=== PATIENT | female | born 1965 | race Caucasian/White ===

== ENCOUNTER → 2019-08-24 08:30 | Outpatient (CLI) | payer MEDICARE, MEDICAID, SELFPAY ==
--- NOTE | 2019-08-21 01:45 | HP_ITS ---
HPI HPI History of Present Illness Surgical H&P: Yes Details: Mrs. Garcia is a very pleasant 54-year-old obese female with a history of diabetes type 2, hyperlipidemia, mild JUAN by sleep study on 04/09/2019 at the [facility], hypertension, history of CVA status post right carotid endarterectomy on 04/01/[address] [facility], carotid artery stenosis, heavy tobacco user of approximately half pack per day for the past 40 years, who presents for evaluation of abnormal stress test in anticipation of elective left carotid endarterectomy. Patient underwent a stress test on 07/02/2019 in [facility] at which she went 4.6 METS, unable to attain target heart rate, and terminated test due to chest pain and shortness of breath she was emergently stopped at 2 minutes and 40 seconds due to 7 out of 10 chest pain. Apparently no imaging was performed. On further history, the patient denies any exertional chest pain, angina, but does have dyspnea on exertion and shortness of breath. She recently underwent PFTs with results pending at an outside facility. She has never had a heart catheterization. In our office today her blood pressure is 120/60, and pulse is 60 and regular. Physical exam demonstrates bilateral carotid bruits, left greater than right, regular rate and rhythm, normal S1/S2, no S3, S4 or murmurs are noted. She has no edema. EKG dated 08/21/2019 shows sinus bradycardia, normal axis, normal intervals, QT corrected of 421 ms, no evidence of previous myocardial infarction. Lipids are pending. Intake Vital Signs 08/21/19 Height 5 ft 6 in 08/21/19 Weight: 204 lb 08/21/19 BMI 32.9 08/21/19 BP 120/60 08/21/19 Blood Pressure Location Lt brachial 08/21/19 Position Sitting 08/21/19 Respiration 20 H 08/21/19 Pulse 60 08/21/19 Pulse Source Auscultation Intake Visit Reasons: ABN STRESS (Danica RAO NP) Body Fitter Required: No Is patient in pain?: No Allergies No Known Allergies Allergy (Verified 08/21/19 13:20) Medications albuterol sulfate 90 mcg/actuation breath activated powder inhaler 2 inh INHALATION Q4H PRN 08/20/19 [History Confirmed 08/21/19] aspirin 81 mg tablet,delayed release 81 mg PO DAILY 08/20/19 [History Confirmed 08/21/19] atorvastatin 80 mg tablet 80 mg PO QHS 08/20/19 [History Confirmed 08/21/19] cyclobenzaprine 5 mg tablet 5 mg PO TID PRN 08/20/19 [History Confirmed 08/21/19] fluoxetine 20 mg capsule 20 mg PO DAILY 08/20/19 [History Confirmed 08/21/19] glimepiride 4 mg tablet 4 mg PO DAILY 08/20/19 [History Confirmed 08/21/19] hydrocortisone 1 % topical cream 1 applic TOPICAL BID PRN g 08/20/19 [History Confirmed 08/21/19] hydroxyzine HCl 10 mg tablet 10 mg PO BID PRN tab 08/20/19 [History Confirmed 08/21/19] losartan 25 mg tablet 25 mg PO DAILY 08/20/19 [History Confirmed 08/21/19] metformin 500 mg tablet 1,000 mg PO DAILY tab 08/20/19 [History Confirmed 08/21/19] PFSH Medical History (Updated 08/20/19 @ 17:56 by Rebeca Aldana) Hypersomnia (Chronic) Hyperlipidemia (Chronic) Heavy tobacco smoker (Chronic) Fatigue (Acute) Shortness of breath (Acute) Diabetes mellitus type II, controlled (Chronic) Chronic bronchitis (Chronic) Essential hypertension (Chronic) Abnormal stress test (Acute) History of CVA (cerebrovascular accident) (Chronic) Carotid artery stenosis (Chronic) Carotid artery disease (Chronic) Bipolar disorder (Chronic) Surgical History (Updated 08/20/19 @ 17:56 by Rebeca Aldana) History of right-sided carotid endarterectomy (Chronic 04/01/14) Family History (Updated 08/20/19 @ 17:57 by Rebeca Aldana) Mother Diabetes Leukemia Social History (Updated 08/21/19 @ 13:[address] Johnathan Santoro MD) Smoking Status: Heavy Smoker (>10/day) ROS Const Const: Positive for other (Needs pre-op eval for L carotid endart per Dr. Santana Portillo. Abn. stress.); negative for fatigue, weakness, body ache, fever(s), headache(s), chills, frequent falls, night sweats, daytime sleepiness, difficulty sleeping, excessive sweating, weight gain, weight loss, increased appetite, poor appetite or anorexia Eyes Eyes: Negative for blind spots, loss of peripheral vision, transient loss of vision, blurry vision, change in vision, double vision, floaters, tunnel vision or other ENT ENT: Negative for headache(s), dizziness, hearing loss, tinnitus, Nosebleed/epistaxis, balance problems, post nasal drip, lip swelling, tongue swelling, bleeding gums, hoarseness, neck pain, dry mouth or other Cardio Chest Pain: No Palpitations: No Edema: None Muscle aches with walking: None Resp Respiratory: Positive for SOB with activity (Has COPD, heavy smoker); negative for SOB at rest, SOB orthopnea\SOB lying down, Cough, Coughing up blood/hemoptysis, chest congestion, pain on inspiration, snoring, stridor, wheezing, crackles, paroxysmal nocturnal dyspnea or other GI GI: Negative nausea, vomiting, heartburn, constipation, belching, bloating, cramping, vomiting blood/hematemesis, bright, red blood in stools, black,tarry stools, loose stools, Difficulty Swallowing or other : Negative for hematuria, frequent nighttime urination/ nocturia, erectile dysfunction or abnormal vaginal bleeding Musc Musc: Negative for muscle aches/ myalgia, muscle weakness, joint pain or balance problems Skin Skin: Negative redness, non-healing lesions, rash, unusual bruising, skin ulcer, wounds, jaundice or other Neuro Neuro: Negative for dizziness, lightheadedness, near syncope, syncope, orthostatic symptoms, frequent falls, headache(s), weakness, confusion, memory loss, restless legs, blurry vision, double vision, vertigo, seizures, lack of coordination or other Osiel Hematologic/Lymphatic: Negative for easy bleeding, easy bruising, enlarged lymph nodes or other Endo Endo: Negative for fatigue, cold intolerance, heat intolerance, excessive sweating, flushing, increased thirst/drinking, increased hunger, hair loss, hair growth or other Psych Psych: Negative for anxiety, depression, thoughts of harming anyone, thoughts of harming yourself, visual hallucinations, panic attacks or audible hallucinations Allergy Allergy/Immunology: Negative for throat swelling, Negative for tongue swelling, Negative for hives, Negative for rash, Negative for lip swelling Cardiology Exam Const Appearance: cooperative, healthy appearing and no acute distress Nutritional Appearance: well nourished Orientation: alert, oriented x3 and oriented to person Head Head: normal to inspection, normocephalic and atraumatic Nose: external nose normal Face and Sinus: face symmetric Mouth: oral mucosae normal Eyes General: appearance normal, both eyes and all related structures Eyelids: eyelids normal Conjunctivae: conjunctivae normal Pupils: PERRL and normal by confrontation EOM: EOM intact bilaterally Neck Neck: normal visual inspection and full ROM Carotids: normal carotid upstroke Chest Chest inspection: normal inspection of the chest Auscultation: Bilateral: Clear to Auscultation Cardio Palpation: normal PMI Rate: regular rate Rhythm: regular rhythm Heart sounds: S1 normal and S2 normal GI GI: normal to inspection, no hepatosplenomegaly and bowel sounds present Neuro General: alert, awake, oriented x3, CN's II-XI intact bilaterally and moves all extremities Skin Skin: no rashes or lesions noted Extremities Pulses: Normal: Right Femoral Pulse, Left Femoral Pulse, Right Dorsalis Pedis Pulse, Left Dorsalis Pedis Pulse, Right Posterior Tibial Pulse, Left Posterior Tibial Pulse, Right Radial Pulse, Left Radial Pulse Lower Extremity Edema: None: Bilateral Psych Psychological: normal affect Assessment & Plan 1. Abnormal stress test R94.39 Plan 1. Abnormal stress test: The patient had a markedly abnormal stress test without imaging on 07/02/2019 at which time she only went 4.6 METS, had 6 out of 10 chest pressure, and had profound shortness of breath/dyspnea on exertion which may be an anginal equivalent. As her left carotid endarterectomy is elective at this time, and she has no strokelike symptoms, I recommended that she undergo a diagnostic left heart catheterization to confirm/deny the presence of significant coronary occlusive disease. The risk/benefits of the procedure were thoroughly explained to the patient, including specific attention to lack of onsite surgical backup, and informed consent was obtained. In the meantime she will continue baby aspirin, losartan, and we will add Plavix 75 mg p.o. daily after a 300 mg x 1 dose. Given her peripheral vascular disease, I would recommend dual antiplatelet therapy going forward. Orders Orders: 12 Lead EKG performed by BMS Today Left Heart Cath/COR/LV Percut Today Basic Metabolic Profile (BMP) Today Chest PA and Lateral Today ,Serum,hCG Quali. Today 2. Hyperlipidemia E78.5 Plan 2. Hyperlipidemia: I recommend obtaining a baseline fasting lipid profile given her risk factors. She is currently on high-dose Lipitor. Her LDL should be less than 70. Orders Orders: 12 Lead EKG performed by [facility] Today Chest PA and Lateral Today 3. Heavy tobacco smoker F17.200 Plan 3. Tobacco abuse are: I had a long thorough discussion with the patient regarding tobacco cessation, and strongly encourage her to discontinue all tobacco products. 4. Return office in 6 months. This note was generated using a voice recognition system and there may be incorrect words, spelling or punctuation that were not noted when reviewing the office note prior to saving. Orders Orders: Chest PA and Lateral Today Plan Detail Other Orders Orders: 12 Lead EKG performed by BMS Today I10, Z86.73 Prothrombin Time w/INR Today R06.02 Echo Complete Today R06.02 CBC W/Diff, Automated Today G47.10 Chest PA and Lateral Today Z86.73 Lipid Profile Today E78.00 Liver Profile Today E78.00 Follow Up +6M (Yvan) Coding Level of Care Code Off vis,new,level 4 Diagnoses Abnormal stress test R94.39 Hyperlipidemia E78.5 Heavy tobacco smoker F17.200 Coding Level of Care Code Off vis,new,level 4 Diagnoses Abnormal stress test R94.39 Hyperlipidemia E78.5 Heavy tobacco smoker F17.200 08/21/19 1345 <Electronically signed by Johnathan Santoro MD> Date _ Johnathan Santoro MD
[2019-08-21 13:19] VITALS: BMI 32.9
--- NOTE | 2019-08-21 15:10 | RAD_ITS ---
STUDY: X-RAY CHEST REASON FOR EXAM: Female, 54 years old. patient to have a heart cath, abnormal stress test, shortness of breath TECHNIQUE: PA and lateral views of the chest. COMPARISON: None. FINDINGS: The lungs are clear and expanded. There is no demonstrated pleural abnormality. Normal size heart. Normal mediastinum and rolo. Normal visualized pulmonary arteries. Normal visualized aortic arch and descending thoracic aorta. Normal visualized thoracic spine. Normal visualized ribs, clavicles, and shoulders. There is no demonstrated abnormality of the visualized soft tissue structures of the upper abdomen. RAD/Chest PA and Lateral IMPRESSION: No acute cardiopulmonary disease. Electronically Signed: Mónica Uribe MD at 0:50 EDT , Service support ,
[2019-08-21 16:10] LABS: Absolute Lymphocyte Count 2.66 X10^3/uL (0.83-4.51); Absolute Neutrophil Count 6.1 X10^3/uL (2.0-7.7); Basophil# 0.07 X10^3/uL; Basophil% 0.7 % (0-1); Eosinophil# 0.09 X10^3/uL; Hematocrit 37.7 % (37-47); Hemoglobin 12.2 g/dL (12.0-15.0); Lymphocyte # 2.66 X10^3/ul (4.0); Lymphocyte % 28.4 % (19-41); Mean Corp Hgb Conc 32.4 g/dL (32-36); Mean Corpuscular Hgb 28.3 pg (27.0-32.0); Mean Corpuscular Volume 87.5 fL (81-99); Mean Platelet Vol. 11.1 fl (6.2-12.0); Monocyte# 0.47 X10^3/uL; NRBC Flagged by Analyzer 0 % (0-5); Neutrophil # 6.06 X10^3/uL (2.7-7.7); Neutrophil % 64.6 % (47-70); Platelet Count 211 K/mm3 (150-450); RBC Distribution Width CV 13.4 % (11.6-14.6); RBC Distribution Width SD 43.1 fl (35.1-43.9); Red Blood Count 4.31 M/mm3 (4.2-5.4); White Blood Count 9.4 K/mm3 (4.4-11.0)
[2019-08-21 16:28] LABS: Internal QC Validated? YES +Cl - CLEAR BKGD; Pregnancy, Serum, hCG Quali. NEGATIVE Negative
[2019-08-21 17:10] LABS: Prothrombin Time (Protime)PT. 13.4 SECONDS (11.7-14.9)
[2019-08-21 18:57] LABS: AST(SGOT) 27 U/L (15-37); Alanine Aminotransfer ALT/SGPT 38 U/L (13-56); Albumin, Serum 3.9 g/dL (3.2-5.0); Alkaline Phosphatase 82 U/L (45-117); Anion Gap 9 (5-15); BUN 15 mg/dL (7-18); BUN/Creat Ratio 12.3 RATIO (10-20); Bilirubin, Direct 0.11 mg/dL (0.00-0.30); Calcium,Total 9.2 mg/dL (8.5-10.1); Chloride 106 mmol/L (98-107); Cholesterol 99 mg/dL (200); Creatinine, Serum 1.22 mg/dL (0.55-1.02); EST Glomerular Filtration Rate 48 mL/min (>60); Est Glom Filt Rate - Afr Amer 59 mL/min (>60); Globulin 3.8 g/dL (2.2-4.2); Glucose 129 mg/dL (74-106); High Density Lipoprotein 44 mg/dL; Potassium 3.9 mmol/L (3.5-5.1); Protein, Total 7.7 g/dL (6.4-8.2); Sodium Level 140 mmol/L (136-145); Triglycerides 112 mg/dL; Very Low Density Lipoprotein 22 mg/dL (5-40)
== END ==
PROVIDERS: PCP Nurse Practitioner Adult Health; Referring Provider Internal Medicine Cardiovascular Disease; Visit Provider Internal Medicine Cardiovascular Disease
DX: Z01.818 Encounter for other preprocedural examination (principal); R94.39 Abnormal result of other cardiovascular function study; R06.02 Shortness of breath; E78.00 Pure hypercholesterolemia, unspecified
CPT/HCPCS: 36415; 71046; 80048; 80061; 80076; 84703; 85025; 85610; 85730

== ENCOUNTER → 2019-10-08 12:37 | Outpatient (CLI) | payer MEDICARE, MEDICAID, SELFPAY ==
[2019-08-21 13:19] VITALS: BMI 32.9
--- NOTE | 2019-10-08 12:39 | ECHOCS_ITS ---
Reason For Study: Pre-op clearance Procedure This was a 2D Doppler, Color Flow transthoracic echocardiogram. The study was technically difficult. Exam performed in department. Left Ventricle Normal size and thickness. The estimated ejection fraction is 65 %. Stage 1 diastolic dysfunction. No regional wall motion abnormalities noted. Right Ventricle Normal size and thickness. Normal systolic function. Atria Normal left atrium. Normal right atrium. Normal atrial septum. Mitral Valve The mitral valve is structurally normal. No prolapse or stenosis seen. Trivial mitral valve insufficiency. Tricuspid Valve Normal tricuspid valve. Trivial tricuspid valve insufficiency. Right ventricular systolic pressure estimated to be 28 mmHg. Aortic Valve Trisinus/trileaflet aortic valve. Normal aortic valve. Pulmonic Valve Normal pulmonic valve. Great Vessels Normal aortic root. Normal arch. Normal inferior vena cava. Inferior vena cava collapse with sniff. Pericardium/Pleural No pericardial effusion. Medication 22 gauge I.V. with prn adaptor inserted into right arm. Diluted definity 2ml given slow IV push to enhance endocardial definition. MMode/2D Measurements & Calculations LVIDd: 4.4 cm IVSd: 1.1 cm Ao root diam: 3.3 cm LVIDs: 2.6 cm LVPWd: 0.94 cm RVDd: 3.1 cm FS: 41.1 % LAV(MOD-bp): 52.5 ml LA A4 area: 18.7 cm2 LA dimension(2D): 4.0 cm LAV(MOD-bp) Indexed: 26.2 ml/m2 LAV(MOD-sp2): 47.3 ml LAV(MOD-sp4): 53.0 ml RA A4 area: 13.4 cm2 Doppler Measurements & Calculations MV E max adilson: 81.0 cm/sec Lat Peak E' Adlison: 9.0 cm/sec Med Peak E' Adilson: 6.9 cm/sec MV A max adilson: 82.6 cm/sec E/E' lat: 9.0 E/E' med: 11.8 MV E/A: 0.98 Ao V2 max: 131.2 cm/sec LV V1 max: 112.0 cm/sec PA V2 max: 103.6 cm/sec Ao max P.9 mmHg LV V1 max P.0 mmHg TR max adilson: 241.4 cm/sec TR max P.3 mmHg Interpretation Summary The estimated ejection fraction is 65 %. Stage 1 diastolic dysfunction. Trivial mitral valve insufficiency. Trivial tricuspid valve insufficiency. Right ventricular systolic pressure estimated to be 28 mmHg. The study was technically difficult. Contrast injection was performed. There is no comparison study available. Ordering Physician: Johnathan Santoro Referring Physician: Elizabeth Martinez Performed By: Yoly Laboy RDCS
[2019-10-08 13:05] LABS: Hematocrit 42.5 % (37-47); Hemoglobin 13.9 g/dL (12.0-15.0); Mean Corp Hgb Conc 32.7 g/dL (32-36); Mean Corpuscular Hgb 28.4 pg (27.0-32.0); Mean Corpuscular Volume 86.9 fL (81-99); Mean Platelet Vol. 10.9 fl (6.2-12.0); Platelet Count 266 K/mm3 (150-450); RBC Distribution Width CV 12.9 % (11.6-14.6); RBC Distribution Width SD 40.6 fl (35.1-43.9); Red Blood Count 4.89 M/mm3 (4.2-5.4); White Blood Count 9.8 K/mm3 (4.4-11.0)
[2019-10-08 13:17] LABS: Anion Gap 4 (5-15); BUN 17 mg/dL (7-18); BUN/Creat Ratio 14.8 RATIO (10-20); Calcium,Total 9.4 mg/dL (8.5-10.1); Chloride 105 mmol/L (98-107); Creatinine, Serum 1.15 mg/dL (0.55-1.02); EST Glomerular Filtration Rate 52 mL/min (>60); Est Glom Filt Rate - Afr Amer 63 mL/min (>60); Glucose 241 mg/dL (74-106); Potassium 3.9 mmol/L (3.5-5.1); Sodium Level 137 mmol/L (136-145)
[2019-10-08 13:30] LABS: Prothrombin Time (Protime)PT. 12.4 SECONDS (11.7-14.9)
[2019-10-08 13:31] LABS: Partial Thromboplast Time 25.7 Seconds (24.1-36.2)
--- NOTE | 2019-10-08 13:51 | EKG12_ITS ---
Test Reason : PRE CATH Blood Pressure : / mmHG Vent. Rate : 055 BPM Atrial Rate : 055 BPM P-R Int : 162 ms QRS Dur : 092 ms QT Int : 432 ms P-R-T Axes : 061 062 061 degrees QTc Int : 413 ms Sinus bradycardia Otherwise normal ECG Confirmed by ERNESTO SANTORO ([id number]), photography editor BOYD AMARAL ([id number]) on 10/11/2019 3:25:16 PM Referred By: Ernesto Santoro Confirmed By:ERNESTO SANTORO
== END ==
PROVIDERS: PCP Nurse Practitioner Adult Health; Referring Provider Internal Medicine Cardiovascular Disease; Visit Provider Internal Medicine Cardiovascular Disease
DX: Z01.818 Encounter for other preprocedural examination (principal); R06.02 Shortness of breath; R07.9 Chest pain, unspecified; R94.39 Abnormal result of other cardiovascular function study; I65.29 Occlusion and stenosis of unspecified carotid artery
CPT/HCPCS: 36415; 80048; 85027; 85610; 85730; 93005; 93306; Q9957; A4216; C8929

== ENCOUNTER 2019-10-12 06:40 | Day surgery (SDC) | payer MEDICARE, MEDICAID, SELFPAY ==
[2019-08-21 13:19] VITALS: BMI 32.9
--- NOTE | 2019-10-08 02:35 | HP_ITS ---
HPI HPI History of Present Illness Surgical H&P: Yes Details: Details: Mrs. Garcia is a very pleasant 54-year-old obese female with a history of diabetes type 2, hyperlipidemia, mild JUAN by sleep study on 04/09/[address] [facility], hypertension, history of CVA status post right carotid endarterectomy on 04/01/2014 at [facility], carotid artery stenosis, heavy tobacco user of approximately half pack per day for the past 40 years, who presents for evaluation of abnormal stress test in anticipation of elective left carotid endarterectomy. Patient underwent a stress test on 07/02/2019 in [facility] at which she went 4.6 METS, unable to attain target heart rate, and terminated test due to chest pain and shortness of breath she was emergently stopped at 2 minutes and 40 seconds due to 7 out of 10 chest pain. Apparently no imaging was performed. On further history, the patient denies any exertional chest pain, angina, but does have dyspnea on exertion and shortness of breath as her presenting symptom. She recently underwent PFTs with results pending at an outside facility. She has never had a heart catheterization. We had originally set the patient up for a left heart catheterization but due to scheduling issues and the coronavirus it is been postponed up until this upcoming week. She is now here for an updated H&P. She has had no difficulty with aspirin and Plavix. She is tolerating her medicines well. In our office today her blood pressure is 138/68, and pulse is 70 and regular. Physical exam demonstrates bilateral carotid bruits, left greater than right, regular rate and rhythm, normal S1/S2, no S3, S4 or murmurs are noted. She has no edema. EKG dated 08/21/2019 shows sinus bradycardia, normal axis, normal intervals, QT corrected of 421 ms, no evidence of previous myocardial infarction. Lipids dated 08/21/2019 show an LDL of 33 and HDL of 44. EKG from today is pending. Intake Vital Signs 10/08/19 Height 5 ft 6 in 10/08/19 Weight: 207 lb 5 oz 10/08/19 BMI 33.4 10/08/19 BP 138/68 H 10/08/19 Blood Pressure Location Lt brachial 10/08/19 Position Sitting 10/08/19 Respiration 20 H 10/08/19 Pulse 76 10/08/19 Pulse Source Auscultation Intake Visit Reasons: UPDATE H&P PER [facility] / CATH [facility] Attendant Required: No Accompanied by: Caregiver Is patient in pain?: No Allergies No Known Allergies Allergy (Verified 08/21/19 13:20) Medications albuterol sulfate 90 mcg/actuation breath activated powder inhaler 2 inh INHALATION Q4H PRN 08/20/19 [History Confirmed 10/08/19] atorvastatin 80 mg tablet 80 mg PO QHS 08/20/19 [History Confirmed 10/08/19] fluoxetine 20 mg capsule 20 mg PO DAILY 08/20/19 [History Confirmed 10/08/19] glimepiride 4 mg tablet 4 mg PO DAILY 08/20/19 [History Confirmed 10/08/19] hydroxyzine HCl 10 mg tablet 10 mg PO BID PRN tab 08/20/19 [History Confirmed 10/08/19] losartan 25 mg tablet 25 mg PO DAILY 08/20/19 [History Confirmed 10/08/19] metformin 500 mg tablet 1,000 mg PO DAILY tab 08/20/19 [History Confirmed 10/08/19] aspirin 81 mg tablet,delayed release 81 mg PO DAILY #30 tab 08/21/19 [Rx Confirmed 10/08/19] clopidogrel 75 mg tablet 75 mg PO DAILY #30 tab 08/21/19 [Rx Confirmed 10/08/19] PFSH Medical History Hypersomnia (Chronic) Hyperlipidemia (Chronic) Heavy tobacco smoker (Chronic) Fatigue (Acute) Shortness of breath (Acute) Diabetes mellitus type II, controlled (Chronic) Chronic bronchitis (Chronic) Essential hypertension (Chronic) Abnormal stress test (Acute) History of CVA (cerebrovascular accident) (Chronic) Carotid artery stenosis (Chronic) Carotid artery disease (Chronic) Bipolar disorder (Chronic) Surgical History History of right-sided carotid endarterectomy (Chronic 04/01/14) Family History Mother Diabetes Leukemia Social History (Updated 10/08/19 @ 14:[address] Johnathan Santoro MD) Smoking Status: Heavy Smoker (>10/day) ROS Const Const: Positive for other (Here for H&P for heart cath, abnormal stress test.); negative for fatigue, weakness, body ache, fever(s), headache(s), chills, frequent falls, night sweats, daytime sleepiness, difficulty sleeping, excessive sweating, weight gain, weight loss, increased appetite, poor appetite or anorexia Eyes Eyes: Negative for blind spots, loss of peripheral vision, transient loss of vision, blurry vision, change in vision, double vision, floaters, tunnel vision or other ENT ENT: Negative for headache(s), dizziness, hearing loss, tinnitus, Nosebleed/epistaxis, balance problems, post nasal drip, lip swelling, tongue swelling, bleeding gums, hoarseness, neck pain, dry mouth or other Cardio Chest Pain: Yes Frequency: monthly Location: mid sternal Duration: minutes Resp Respiratory: Positive for SOB with activity (with minimal exertion. She does smoke) and other (Uses inhaler); negative for SOB at rest, SOB orthopnea\SOB lying down, Cough, Coughing up blood/hemoptysis, chest congestion, pain on inspiration, snoring, stridor, wheezing, crackles or paroxysmal nocturnal dyspnea GI GI: Negative nausea, vomiting, heartburn, constipation, belching, bloating, cramping, vomiting blood/hematemesis, bright, red blood in stools, black,tarry stools, loose stools, Difficulty Swallowing or other : Negative for hematuria, frequent nighttime urination/ nocturia, erectile dysfunction or abnormal vaginal bleeding Musc Musc: Negative for muscle aches/ myalgia, muscle weakness, joint pain or balance problems Skin Skin: Negative redness, non-healing lesions, rash, unusual bruising, skin ulcer, wounds, jaundice or other Neuro Neuro: Negative for dizziness, lightheadedness, near syncope, syncope, orthostatic symptoms, frequent falls, headache(s), weakness, confusion, memory loss, restless legs, blurry vision, double vision, vertigo, seizures, lack of coordination or other Osiel Hematologic/Lymphatic: Negative for easy bleeding, easy bruising, enlarged lymph nodes or other Endo Endo: Negative for fatigue, cold intolerance, heat intolerance, excessive sweating, flushing, increased thirst/drinking, increased hunger, hair loss, hair growth or other Psych Psych: Negative for anxiety, depression, thoughts of harming anyone, thoughts of harming yourself, visual hallucinations, panic attacks or audible hallucinations Allergy Allergy/Immunology: Negative for throat swelling, Negative for tongue swelling, Negative for hives, Negative for rash, Negative for lip swelling Cardiology Exam Const Appearance: cooperative, healthy appearing and no acute distress Nutritional Appearance: well nourished Orientation: alert, oriented x3 and oriented to person Head Head: normal to inspection, normocephalic and atraumatic Nose: external nose normal Face and Sinus: face symmetric Mouth: oral mucosae normal Eyes General: appearance normal, both eyes and all related structures Eyelids: eyelids normal Conjunctivae: conjunctivae normal Pupils: PERRL and normal by confrontation EOM: EOM intact bilaterally Neck Neck: normal visual inspection and full ROM Carotids: normal carotid upstroke Chest Chest inspection: normal inspection of the chest Auscultation: Bilateral: Clear to Auscultation Cardio Palpation: normal PMI Rate: regular rate Rhythm: regular rhythm Heart sounds: S1 normal and S2 normal GI GI: normal to inspection, no hepatosplenomegaly and bowel sounds present Neuro General: alert, awake, oriented x3, CN's II-XI intact bilaterally and moves all extremities Skin Skin: no rashes or lesions noted Extremities Pulses: Normal: Right Femoral Pulse, Left Femoral Pulse, Right Dorsalis Pedis Pulse, Left Dorsalis Pedis Pulse, Right Posterior Tibial Pulse, Left Posterior Tibial Pulse, Right Radial Pulse, Left Radial Pulse Lower Extremity Edema: None: Bilateral Psych Psychological: normal affect Assessment & Plan 1. Abnormal stress test R94.39 Plan 1. Abnormal stress test: Patient has signs and symptoms of possible coronary occlusive disease and has several risk factors including her age, diabetes, hyperlipidemia, heavy tobacco use and abnormal stress test. I recommend the patient undergo a left heart catheterization this upcoming week. The risk/benefits of the procedure were thoroughly explained the patient including specific attention to lack of onsite surgical backup, and the patient has agreed to proceed. She will continue her baby aspirin, Plavix, losartan. Orders Orders: Basic Metabolic Profile (BMP) Today CBC-Complete Blood Cnt No Diff Today Prothrombin Time w/INR Today Partial Thromboplast Time Today 12 Lead EKG Today 2. Hyperlipidemia E78.5 Plan 2. Hyperlipidemia: Her LDL and HDL cholesterol are under excellent control. Continue Lipitor. 3. Return office in 6 months. This note was generated using a voice recognition system and there may be incorrect words, spelling or punctuation that were not noted when reviewing the office note prior to saving. Plan Detail Other Orders Orders: Basic Metabolic Profile (BMP) Today I65.29, Z01.818 Prothrombin Time w/INR Today I65.29, Z01.818 Partial Thromboplast Time Today I65.29, Z01.818 12 Lead EKG Today R06.02, R07.9 Follow Up +6M (Yvan) Coding Level of Care Code Off vis,est,level 3 Diagnoses Abnormal stress test R94.39 Hyperlipidemia E78.5 Coding Level of Care Code Off vis,est,level 3 Diagnoses Abnormal stress test R94.39 Hyperlipidemia E78.5 Supplemental Info Supplemental Information Labs LDL Cholesterol 33 mg/dL (0-130) 08/21/19 HDL Cholesterol 44 mg/dL (40-) 08/21/19 Triglycerides 112 mg/dL (-199) 08/21/19 VLDL Cholesterol 22 mg/dL (5-40) 08/21/19 Diagnostics Electrocardiogram 08/21/19 Chest X-Ray 08/21/19 10/08/19 3137 <Electronically signed by Johnathan Santoro MD> Date _ Johnathan Santoro MD
[2019-10-08 13:08] VITALS: BMI 33.4
[2019-10-10 08:25] VITALS: BMI 33.4
--- NOTE | 2019-10-12 08:16 | HP.PCM_ITS ---
Problem List (1) Abnormal stress test Status: Acute (2) Fatigue Status: Acute (3) Shortness of breath Status: Acute (4) Carotid artery disease Status: Chronic (5) Hyperlipidemia Status: Chronic History and Physical Date of Admission: 10/12/19 [facility] Medical Records Department [address] [place] [address] History and Physical 10/08/19 0235 MR#: [id number] Acct: [id number] Name: VIRGINIA SIMENTAL Rep #:[id number] : 1965 54 From: Johnathan Warren PCP: MIRIAN Pulliam Status:PRE S DC [facility] HPI HPI History of Present Illness Surgical H&P: Yes Details: Details: Mrs. Simental is a very pleasant 54-year-old obese female with a history of diabetes type 2, hyperlipidemia, mild JUAN by sleep study on 04/09/2019 at the [facility], hypertension, history of CVA status post right carotid endarterectomy on 04/01/2014 at [facility], carotid artery stenosis, heavy tobacco user of approximately half pack per day for the past 40 years, who presents for evaluation of abnormal stress test in anticipation of elective left carotid endarterectomy. Patient underwent a stress test on 07/02/2019 in [facility] at which she went 4.6 METS, unable to attain target heart rate, and terminated test due to chest pain and shortness of breath she was emergently stopped at 2 minutes and 40 seconds due to 7 out of 10 chest pain. Apparently no imaging was performed. On further history, the patient denies any exertional chest pain, angina, but does have dyspnea on exertion and shortness of breath as her presenting symptom. She recently underwent PFTs with results pending at an outside facility. She has never had a heart catheterization. We had originally set the patient up for a left heart catheterization but due to scheduling issues and the coronavirus it is been postponed up until this upcoming week. She is now here for an updated H&P. She has had no difficulty with aspirin and Plavix. She is tolerating her medicines well. In our office today her blood pressure is 138/68, and pulse is 70 and regular. Physical exam demonstrates bilateral carotid bruits, left greater than right, regular rate and rhythm, normal S1/S2, no S3, S4 or murmurs are noted. She has no edema. EKG dated 08/21/2019 shows sinus bradycardia, normal axis, normal intervals, QT corrected of 421 ms, no evidence of previous myocardial infarction. Lipids dated 08/21/2019 show an LDL of 33 and HDL of 44. EKG from today is pending. 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 Advertising Required: No Accompanied by: Caregiver Is patient in pain?: No Allergies No Known Allergies Allergy (Verified 08/21/19 13:20) Medications albuterol sulfate 90 mcg/actuation breath activated powder inhaler 2 inh INHALATION Q4H PRN 08/20/19 [History Confirmed 10/08/19] atorvastatin 80 mg tablet 80 mg PO QHS 08/20/19 [History Confirmed 10/08/19] fluoxetine 20 mg capsule 20 mg PO DAILY 08/20/19 [History Confirmed 10/08/19] glimepiride 4 mg tablet 4 mg PO DAILY 08/20/19 [History Confirmed 10/08/19] hydroxyzine HCl 10 mg tablet 10 mg PO BID PRN tab 08/20/19 [History Confirmed 10/08/19] losartan 25 mg tablet 25 mg PO DAILY 08/20/19 [History Confirmed 10/08/19] metformin 500 mg tablet 1,000 mg PO DAILY tab 08/20/19 [History Confirmed 10/08/19] aspirin 81 mg tablet,delayed release 81 mg PO DAILY #30 tab 08/21/19 [Rx Confirmed 10/08/19] clopidogrel 75 mg tablet 75 mg PO DAILY #30 tab 08/21/19 [Rx Confirmed 10/08/19] [facility] Medical History Hypersomnia (Chronic) Hyperlipidemia (Chronic) Heavy tobacco smoker (Chronic) Fatigue (Acute) Shortness of breath (Acute) Diabetes mellitus type II, controlled (Chronic) Chronic bronchitis (Chronic) Essential hypertension (Chronic) Abnormal stress test (Acute) History of CVA (cerebrovascular accident) (Chronic) Carotid artery stenosis (Chronic) Carotid artery disease (Chronic) Bipolar disorder (Chronic) Surgical History History of right-sided carotid endarterectomy (Chronic 04/01/14) Family History Mother Diabetes Leukemia Social History (Updated 10/08/19 @ 14:[address] Johnathan Santoro MD) Smoking Status: Heavy Smoker (>10/day) ROS Const Const: Positive for other (Here for H&P for heart cath, abnormal stress test.); negative for fatigue, weakness, body ache, fever(s), headache(s), chills, frequent falls, night sweats, daytime sleepiness, difficulty sleeping, excessive sweating, weight gain, weight loss, increased appetite, poor appetite or anorexia Eyes Eyes: Negative for blind spots, loss of peripheral vision, transient loss of vision, blurry vision, change in vision, double vision, floaters, tunnel vision or other ENT ENT: Negative for headache(s), dizziness, hearing loss, tinnitus, Nosebleed/epistaxis, balance problems, post nasal drip, lip swelling, tongue swelling, bleeding gums, hoarseness, neck pain, dry mouth or other Cardio Chest Pain: Yes Frequency: monthly Location: mid sternal Duration: minutes Resp Respiratory: Positive for SOB with activity (with minimal exertion. She does smoke) and other (Uses inhaler); negative for SOB at rest, SOB orthopnea\SOB lying down, Cough, Coughing up blood/hemoptysis, chest congestion, pain on inspiration, snoring, stridor, wheezing, crackles or paroxysmal nocturnal dyspnea GI GI: Negative nausea, vomiting, heartburn, constipation, belching, bloating, cramping, vomiting blood/hematemesis, bright, red blood in stools, black,tarry stools, loose stools, Difficulty Swallowing or other : Negative for hematuria, frequent nighttime urination/ nocturia, erectile dysfunction or abnormal vaginal bleeding Musc Musc: Negative for muscle aches/ myalgia, muscle weakness, joint pain or balance problems Skin Skin: Negative redness, non-healing lesions, rash, unusual bruising, skin ulcer, wounds, jaundice or other Neuro Neuro: Negative for dizziness, lightheadedness, near syncope, syncope, orthostatic symptoms, frequent falls, headache(s), weakness, confusion, memory loss, restless legs, blurry vision, double vision, vertigo, seizures, lack of coordination or other Osiel Hematologic/Lymphatic: Negative for easy bleeding, easy bruising, enlarged lymph nodes or other Endo Endo: Negative for fatigue, cold intolerance, heat intolerance, excessive sweating, flushing, increased thirst/drinking, increased hunger, hair loss, hair growth or other Psych Psych: Negative for anxiety, depression, thoughts of harming anyone, thoughts of harming yourself, visual hallucinations, panic attacks or audible hallucinations Allergy Allergy/Immunology: Negative for throat swelling, Negative for tongue swelling, Negative for hives, Negative for rash, Negative for lip swelling Cardiology Exam Const Appearance: cooperative, healthy appearing and no acute distress Nutritional Appearance: well nourished Orientation: alert, oriented x3 and oriented to person Head Head: normal to inspection, normocephalic and atraumatic Nose: external nose normal Face and Sinus: face symmetric Mouth: oral mucosae normal Eyes General: appearance normal, both eyes and all related structures Eyelids: eyelids normal Conjunctivae: conjunctivae normal Pupils: PERRL and normal by confrontation EOM: EOM intact bilaterally Neck Neck: normal visual inspection and full ROM Carotids: normal carotid upstroke Chest Chest inspection: normal inspection of the chest Auscultation: Bilateral: Clear to Auscultation Cardio Palpation: normal PMI Rate: regular rate Rhythm: regular rhythm Heart sounds: S1 normal and S2 normal GI GI: normal to inspection, no hepatosplenomegaly and bowel sounds present Neuro General: alert, awake, oriented x3, CN's II-XI intact bilaterally and moves all extremities Skin Skin: no rashes or lesions noted Extremities Pulses: Normal: Right Femoral Pulse, Left Femoral Pulse, Right Dorsalis Pedis Pulse, Left Dorsalis Pedis Pulse, Right Posterior Tibial Pulse, Left Posterior Tibial Pulse, Right Radial Pulse, Left Radial Pulse Lower Extremity Edema: None: Bilateral Psych Psychological: normal affect Assessment & Plan 1. Abnormal stress test R94.39 Plan 1. Abnormal stress test: Patient has signs and symptoms of possible coronary occlusive disease and has several risk factors including her age, diabetes, hyperlipidemia, heavy tobacco use and abnormal stress test. I recommend the patient undergo a left heart catheterization this upcoming week. The risk/benefits of the procedure were thoroughly explained the patient including specific attention to lack of onsite surgical backup, and the patient has agreed to proceed. She will continue her baby aspirin, Plavix, losartan. Orders Orders: Basic Metabolic Profile (BMP) Today CBC-Complete Blood Cnt No Diff Today Prothrombin Time w/INR Today Partial Thromboplast Time Today 12 Lead EKG Today 2. Hyperlipidemia E78.5 Plan 2. Hyperlipidemia: Her LDL and HDL cholesterol are under excellent control. Continue Lipitor. 3. Return office in 6 months. This note was generated using a voice recognition system and there may be incorrect words, spelling or punctuation that were not noted when reviewing the office note prior to saving. Plan Detail Other Orders Orders: Basic Metabolic Profile (BMP) Today I65.29, Z01.818 Prothrombin Time w/INR Today I65.29, Z01.818 Partial Thromboplast Time Today I65.29, Z01.818 12 Lead EKG Today R06.02, R07.9 Follow Up +6M (Yvan) Coding Level of Care Code Off vis,est,level 3 Diagnoses Abnormal stress test R94.39 Hyperlipidemia E78.5 Coding Level of Care Code Off vis,est,level 3 Diagnoses Abnormal stress test R94.39 Hyperlipidemia E78.5 Supplemental Info Supplemental Information Labs LDL Cholesterol 33 mg/dL (0-130) 08/21/19 HDL Cholesterol 44 mg/dL (40-) 08/21/19 Triglycerides 112 mg/dL (-199) 08/21/19 VLDL Cholesterol 22 mg/dL (5-40) 08/21/19 Diagnostics Electrocardiogram 08/21/19 Chest X-Ray 08/21/19 10/08/19 1435 <Electronically signed by Johnathan Santoro MD> Date _ Johnathan Santoro MD 10/10/19 0921 <Electronically signed by Johnathan Santoro MD> Date: Time: __ Johnathan Santoro MD CC: MIRIAN Martinez; Johnathan Santoro MD ~ Date Dictated: 10/08/195 Date Transcribed: 10/09/19 1041 Professor Of Public Administration: NR Signed Interventional cardiology addendum: The patient seen and examined on day of procedure, the risk/benefits of the procedure were thoroughly explained the patient including specific attention to lack of onsite surgical backup, and patient agreed to proceed. Cardiac catheterization to follow.
--- NOTE | 2019-10-12 08:24 | CL.D_ITS ---
Patient Name: VIRGINIA SIMENTAL Study Date: 10/12/2019 Performing: Johnathan Santoro MD Ht: 66.14 inches 168 cm : 1965 Wt: 207.23 lbs 94 kg Age: 54 Gender: female BSA: 2.03 PROCEDURE(S) PERFORMED GQ35-XKL/COR/LV CLINICAL PROFILE AND INDICATIONS Indications: Suspected CAD Heart Failure: None Stress/Imaging Date: 07/02/2019 Angina Classification Anginal Classification w/in 2 Weeks: Anginal Equivalent Dyspnea CAD Presentations: Other: Dyspnea on exertion Comorbidities/Risk Factors: Current/Recent Smoker (< 1year) Hypertension Dyslipidemia Diabetes Mellitus: Diabetes Therapy: Oral Cerebrovascular Disease Peripheral Arterial Disease CONCLUSIONS Non obstructive coronary arteries Normal LV size, wall motion,and systolic function Normal Left Ventricular systolic function LVEF: by LV gram 65 % Elevated Left Ventricular End Diastolic Pressure RECOMMENDATIONS Management as per referring Warrant Server Manual sheath removal. Increase losartan to 50mg daily. PFT in 2 weeks. DESCRIPTION OF PROCEDURE The patient arrived to the procedure lab. The risks and benefits of the procedure as well as a full d escription of our services here and current unavailability of surgical backup were fully explained to the patient and/or their significant other prior to the catheterization. The Timeout was completed, verifying the correct patient and procedure. The patient's procedural site was prepped and draped in the usual fashion. Local anesthetic was given subcutaneously to right groin region with Lidocaine 2%. Using a modified Seldinger technique, arterial access was obtained via the right femoral artery, a 4 Fr sheath was inserted Left Coronary Artery selective angiography was performed in multiple views us ing a 4 Fr. JL5 catheter. Right Coronary Artery selective angiography was then performed in multiple views using a 4 Fr. 3DRC catheter. Left Ventriculography was performed in BORJA projection using a 4 Fr . Pigtail catheter. LV to AO pullback pressures were then recorded.The arterial sheath was pulled and manual compression applied until hemostasis is achieved. CORONARY ANGIOGRAPHY DOMINANCE: Right Dominant LEFT HEART ASSESSMENT Left Ventricular Ejection Fraction: by LV Gram 65 % Normal LV wall motion Normal Left Ventricular systolic function LVEDP: 15 mmHg LEFT MAIN: Angiographically normal LEFT ANTERIOR DESCENDING ARTERY: MID LAD: Non-obstructive CIRCUMFLEX ARTERY: Non-obstructive RIGHT CORONARY ARTERY: Mild luminal irregularities less than 30% COMPLICATIONS No Complications PROCEDURE MEDICATIONS Versed 1 mg IV Oxygen: 2 L/min via nasal cannula Nitro 400 mcg IC 10/12/2019 08:12:28 SUMMARY OF HEMODYNAMIC DATA Time AIR REST ECG 07:28:20 AO 195/84 (125) SA 08:05:54 LV 171/-31, 14 08:11:50 LV 166/-30, 14 08:11:56 LVp 170/-30, 15 08:12:03 AOp 175/68 (109) 08:12:08 AO 160/64 (96) 08:12:47 Signed By Johnathan Santoro MD On 10/12/2019 08:23:04 Johnathan Santoro MD
== END 2019-10-12 12:40 | disposition home or self-care (01) ==
LOC: CLSP 06:42
PROVIDERS: PCP Nurse Practitioner Adult Health; Referring Provider Internal Medicine Cardiovascular Disease; Visit Provider Internal Medicine Cardiovascular Disease
DX: R94.39 Abnormal result of other cardiovascular function study (principal); E78.5 Hyperlipidemia, unspecified; I10 Essential (primary) hypertension; I65.29 Occlusion and stenosis of unspecified carotid artery; E11.51 Type 2 diabetes mellitus with diabetic peripheral angiopathy without gangrene; E66.9 Obesity, unspecified; R06.02 Shortness of breath; R53.83 Other fatigue; F17.200 Nicotine dependence, unspecified, uncomplicated; Z68.33 Body mass index [BMI] 33.0-33.9, adult; Z79.82 Long term (current) use of aspirin; Z79.02 Long term (current) use of antithrombotics/antiplatelets; Z79.84 Long term (current) use of oral hypoglycemic drugs; Z86.73 Personal history of transient ischemic attack (TIA), and cerebral infarction without residual deficits
CPT/HCPCS: 93458; 99152; J7040; C1769; C1894; Q9967

== ENCOUNTER → 2020-01-23 09:50 | Outpatient (CLI) | payer MEDICARE, MEDICAID, SELFPAY ==
[2019-10-10 08:25] VITALS: BMI 33.4
--- NOTE | 2020-01-23 09:55 | NM_ITS ---
CLINICAL: 54-year-old female with history of hydronephrosis. 99m Tc MAG3 DIURETIC RENAL SCINTIGRAPHY COMPARISON: None available FINDINGS: Following the intravenous administration of 10.2 mCi of 99m Tc MAG3, renal images reveal: 1. The flow study demonstrates relatively symmetric-normal arterial phase distribution of the radiopharmaceutical. 2. Immediate static delayed nephrogram images depict prompt, homogeneous tracer uptake by the renal parenchyma of both kidneys. Collecting system visualization is defined at 4 minutes following tracer injection bilaterally. Washout of the radiopharmaceutical by the renal parenchyma appears qualitatively normal in both kidneys with significant collecting system activity obscuring visualization of the peripheral renal cortex in the right renal unit. Persistent collecting system activity is noted in the right and left kidneys during 25 minutes of pre-Lasix sequential image acquisition (R > L). 3. The ubyyl-an-aawi ratio of total renal parenchymal function was calculated to be 54/46. Furosemide 10 mg was administered intravenously. The post Lasix T ? washout of the left kidney collecting system activity was calculated to be 14.5 minutes and > 20 minutes regarding the right kidney collecting system, (normal < 10 minutes). Analysis of the post FUROSEMIDE right kidney collecting system time/activity curve demonstrates plateaued count statistics. NM/Renal Scan w/ Pharm Intervent IMPRESSION: 1. There is relative preservation of bilateral renal parenchymal-cortical function. 2. An indeterminate response to diuretic provision is defined in the left kidney collecting system (T ? > 10 and < 20 minutes). An abnormal response to LASIX administration is defined in the right kidney collecting system consistent with the presence of mechanical and/or functional obstruction in the appropriate clinical context. Electronically Signed: Bret Lion DO at 21:30 EDT Tel , Service support ,
== END ==
PROVIDERS: PCP Nurse Practitioner Adult Health; Referring Provider Internal Medicine Nephrology; Visit Provider Internal Medicine Nephrology
DX: N13.30 Unspecified hydronephrosis (principal)
CPT/HCPCS: 78708; A9562; J1940

== ENCOUNTER 2020-12-18 08:50 | Emergency (ER) | payer MEDICARE, MEDICAID, SELFPAY ==
[2019-10-10 08:25] VITALS: BMI 33.4
[2020-12-18 08:51] VITALS: BP 185/91; PULSE 78; RESP 18; TEMP 36.3; O2SAT 96; BMI 32.3
--- NOTE | 2020-12-18 09:28 | CT_ITS ---
STUDY: CT BRAIN WITHOUT CONTRAST REASON FOR EXAM: Female, 55 years old. Weakness RADIATION DOSAGE (If Supplied By Facility): CTDIvol = ( 44.99 ) mGy, DLP = ( 745.49 ) mGycm TECHNIQUE: Transaxial CT imaging of the brain was performed without administration of intravenous contrast material. Individualized dose optimization techniques were used for this CT. COMPARISON: No relevant priors. FINDINGS: Normal soft tissue structures. Normal calvarium. There is mild cerebral atrophy with widening of the extra-axial spaces and ventricular dilatation. Focal area of encephalomalacia in the right temporal lobe. This may represent a focal area of prior infarction. Tiny lacunae is seen in the left basal ganglia. Normal basal ganglia and thalami. Normal brainstem. Normal cerebellum. Prominence of the cisterna magna on the right side. This is a normal variant. There is no intracranial hemorrhage. There are no findings of an acute ischemic infarction. Atherosclerotic plaque formation of the cavernous portions of the internal carotid arteries bilaterally. Normal visualized paranasal sinuses. CT/Brain/Head without Contrast IMPRESSION: Chronic involutional changes of the brain. Findings suggestive of an old focal infarction in the right temporal lobe as well as old lacunar in the left basal ganglia. Electronically Signed: Yaw Greco MD at 10:17 EDT , Service support ,
--- NOTE | 2020-12-18 09:32 | EKG12_ITS ---
Test Reason : FELL Blood Pressure : / mmHG Vent. Rate : 060 BPM Atrial Rate : 060 BPM P-R Int : 158 ms QRS Dur : 088 ms QT Int : 414 ms P-R-T Axes : 050 038 042 degrees QTc Int : 414 ms Normal sinus rhythm Normal ECG Confirmed by VETO LORENZ, JAVIER ([id number]), editor dictionary HARVEY DIAZ ([id number]) on 12/22/2020 9:26:48 AM Referred By: BRANDIN Confirmed By:LORENA LAWS MD
--- NOTE | 2020-12-18 09:34 | EDS_ITS ---
HPI History of Present Illness Chief Complaint: Fall Informant: patient Onset/Context/Timing Onset: Today Context: Sudden Onset Timing: Continuous Quality: Weakness and tingling Location: Left arm and leg Worsened by: Standing Relieved by: Nothing Narrative Narrative: Patient presents with fall that occurred today. Patient states she was in the shower when her left arm and left leg became numb. Patient states her arm and leg then began to shake. Patient states she was able to grab onto a bar with her right hand. Patient fell but denies any head injury or loss of consciousness. Patient denies any pain anywhere. Patient states her left hand and left leg still feel tingly. Patient denies any headaches. Patient denies any neck or back pain. [facility] Medical History Abnormal stress test Carotid artery disease Carotid artery stenosis Chronic bronchitis Diabetes mellitus type II, controlled Essential hypertension Fatigue Heavy tobacco smoker History of CVA (cerebrovascular accident) Hyperlipidemia Hypersomnia PTSD (post-traumatic stress disorder) Shortness of breath Home Medications atorvastatin 80 mg tablet 80 mg PO QHS 08/20/19 [History Last Taken 12/17/20] hydroxyzine HCl 10 mg tablet 10 - 20 mg PO QHS PRN tab 08/20/19 [History Last Taken Unknown] metformin 500 mg tablet 1,000 mg PO DAILY tab 08/20/19 [History Last Taken 12/18/20] losartan 50 mg tablet 50 mg PO DAILY #30 tab 10/12/19 [Rx Last Taken 12/18/20] aspirin 81 mg tablet,delayed release 81 mg PO DAILY #90 tab 01/07/20 [Rx Last Taken 12/18/20] clonidine HCl 0.1 mg PO BID 12/18/20 [History Last Taken Unknown] insulin glargine [Lantus Solostar U-100 Insulin] 40 unit SUBCUT QHS 12/18/20 [History Last Taken Unknown] loratadine 10 mg PO DAILY 12/18/20 [History Last Taken Unknown] Allergy/AdvReac Type Severity Reaction Status Date / Time No Known Allergies Allergy Verified 12/18/20 08:53 Family History Mother Diabetes Leukemia Surgical History History of left heart catheterization (10/12/19) History of right-sided carotid endarterectomy (04/01/14) Social History Smoking Status: Heavy Smoker (>10/day) ROS ROS ED Constitutional Constitutional ED: Denies chills or fever(s) Eyes Eyes: Denies blurry vision or change in vision ENT ENT ED: Denies rhinorrhea or sore throat Cardiovascular Cardiovascular: Denies chest pain or palpitations Respiratory/Chest Respiratory/Chest: Denies cough or dyspnea Gastrointestinal Gastrointestinal: Denies nausea or vomiting Genitourinary Genitourinary ED: Denies dysuria or hematuria Musculoskeletal Musculoskeletal: Denies back pain or neck pain Integumentary Denies abscess or rash Neurologic Neurologic: Reports paresthesias LUE and LLE; Denies headache(s) or weakness Allergic/Immunologic Allergic/Immunologic ED: Denies mouth swelling or urticaria EXAM Physical Exam Const Vital Signs: 12/18/20 08:51 12/18/20 09:23 Temperature 97.3 F L Temperature Source Temporal Pulse Rate 78 Respiratory Rate 18 Respiratory Effort Normal Non-Labored Respiratory Depth Normal Respiratory Pattern Normal Blood Pressure 185/91 H Blood Pressure Mean 122 Pulse Ox 96 Oxygen Delivery Method Room Air Room Air Positive well nourished and well developed General Appearance ED: well developed HEENT Reports moist mucous membranes Neck supple and no JVD Resp normal respiratory effort and clear to auscultation bilaterally Cardio regular rate, regular rhythm and no murmurs GI normal to inspection, nondistended, normoactive bowel sounds and non-tender Palpation: soft Extremity normal to inspection General Extremety ED: Negative for edema or tenderness General Extremity: Negative for edema Neuro oriented x3, CN's II-XII intact bilaterally and no sensory deficits noted Sensorium / Orientation: awake and alert Coordination / Balance: [id number] test normal and other Patient was slower with [id number] on the left than the right. Otherwise, [id number]-vr-[id number] was normal. Motor Exam: strength 5/5 throughout Psych mental status grossly normal Skin no rashes or lesions noted MDM MDM MDM Narrative Medical decision making narrative: EKG was obtained. On my interpretation, it s howed a normal sinus rhythm with a rate of 60. OK interval, QRS interval, and QTc intervals were all normal. [place] was normal. There are no acute ST or T wave changes. CT scan of the brain was obtained. There is no acute intracranial abnormality. CBC and comprehensive metabolic profile were obtained and were within normal limits. Patient was able to ambulate in the emergency department. Patient was instructed to follow-up with her primary care physician in 3 to 5 days. Patient understood and was agreeable with the plan. All questions were answered. Lab Data Attestation: I reviewed the patient's lab results. Labs: Laboratory Results - last 24 hr 12/18/20 12/18/20 09:46 09:46 WBC 8.9 RBC 4.65 Hgb 13.4 Hct 40.9 MCV 88.0 MCH 28.8 MCHC 32.8 RDW Std Deviation 41.8 RDW Coeff of Marcello 13.0 Plt Count 265 MPV 10.4 Immature Gran % (Auto) 0.400 Neut % (Auto) 56.8 Lymph % (Auto) 35.8 Taney % (Auto) 4.9 Eos % (Auto) 1.3 Baso % (Auto) 0.8 Absolute Neuts (auto) 5.1 Absolute Lymphs (auto) 3.19 Nucleated RBC % 0 Sodium 139 Potassium 4.0 Chloride 107 Carbon Dioxide 29.0 Anion Gap 3 L BUN 19 H Creatinine 1.18 H Estim Creat Clear Calc 49.24 Est GFR (MDRD) Af Amer 61 Est GFR (MDRD) Non-Af 50 L BUN/Creatinine Ratio 16.1 Glucose 108 H Calcium 9.2 Total Bilirubin 0.40 AST 21 ALT 31 Alkaline Phosphatase 75 Troponin I High Sens 4.9 Total Protein 7.9 Albumin 3.8 Globulin 4.1 Albumin/Globulin Ratio 0.9 Radiography Diagnostic Testing: Radiology Impression Brain CT 12/18/20 09:28 IMPRESSION: Chronic involutional changes of the brain. Findings suggestive of an old focal infarction in the right temporal lobe as well as old lacunar in the left basal ganglia. Electronically Signed: Yaw Greco MD at 10:17 EDT , Service support , EKG Initial EKG: Attestation: I personally reviewed and interpreted this EKG as follows: Interpretation: Sinus Rhythm (60) and No Acute Injury Pattern Prior EKG tracings: available for review Prior: Unchanged (10/08/2019) Discharge Plan Triage Chief Complaint: Fall ED Provider: Nazario Mead Dx/Rx/DC Orders Clinical Impression: Fall Instructions: ED Fall Prevention, ED Fall Dizziness Weakn Balance Prescriptions: No Action atorvastatin 80 mg tablet 80 mg PO QHS RF: 0 metformin 500 mg tablet 1,000 mg PO DAILY RF: 0 hydroxyzine HCl 10 mg tablet 10 - 20 mg PO QHS PRN (Reason: Anxiety) RF: 0 clonidine HCl 0.1 mg Tablet 0.1 mg PO BID RF: 0 loratadine 10 mg Capsule 10 mg PO DAILY RF: 0 Lantus Solostar U-100 Insulin 100 unit/mL (3 mL) insulin pen 40 unit SUBCUT QHS RF: 0 losartan 50 mg tablet 50 mg PO DAILY Qty: 30 RF: 11 aspirin [Adult Aspirin Regimen] 81 mg tablet,delayed release (DR/EC) 81 mg PO DAILY Qty: 90 RF: 3 Primary Care Provider: Keyona Lopes Referrals: Keyona Lopes [Primary Care Provider] - 3-5 Days Disposition Disposition: Home, Self Care
[2020-12-18 10:07] LABS: Absolute Lymphocyte Count 3.19 X10^3/uL (0.83-4.51); Absolute Neutrophil Count 5.1 X10^3/uL (2.0-7.7); Basophil# 0.07 X10^3/uL; Basophil% 0.8 % (0-1); Eosinophil# 0.12 X10^3/uL; Eosinophils% 1.3 % (0-5); Hematocrit 40.9 % (37-47); Hemoglobin 13.4 g/dL (12.0-15.0); Lymphocyte # 3.19 X10^3/ul (0.83-4.51); Lymphocyte % 35.8 % (19-41); Mean Corp Hgb Conc 32.8 g/dL (32-36); Mean Corpuscular Hgb 28.8 pg (27.0-32.0); Mean Platelet Vol. 10.4 fl (6.2-12.0); Monocyte# 0.44 X10^3/uL; Monocyte% 4.9 % (0-10); NRBC Flagged by Analyzer 0 % (0-5); Neutrophil # 5.05 X10^3/uL (2.7-7.7); Neutrophil % 56.8 % (47-70); Platelet Count 265 K/mm3 (150-450); RBC Distribution Width SD 41.8 fl (35.1-43.9); Red Blood Count 4.65 M/mm3 (4.2-5.4); White Blood Count 8.9 K/mm3 (4.4-11.0)
[2020-12-18 10:23] LABS: ALB/GLOB Ratio 0.9 RATIO (0.9-2.4); AST(SGOT) 21 U/L (15-37); Alanine Aminotransfer ALT/SGPT 31 U/L (13-56); Albumin, Serum 3.8 g/dL (3.2-5.0); Alkaline Phosphatase 75 U/L (45-117); Anion Gap 3 (5-15); BUN 19 mg/dL (7-18); BUN/Creat Ratio 16.1 RATIO (10-20); Calcium,Total 9.2 mg/dL (8.5-10.1); Chloride 107 mmol/L (98-107); Creatinine, Serum 1.18 mg/dL (0.55-1.02); EST Glomerular Filtration Rate 50 mL/min (>60); Est Glom Filt Rate - Afr Amer 61 mL/min (>60); Estimated Creatinine Clearance 49.24 ml/min; Globulin 4.1 g/dL (2.2-4.2); Glucose 108 mg/dL (74-106); Protein, Total 7.9 g/dL (6.4-8.2); Sodium Level 139 mmol/L (136-145); Troponin-I HS 4.9 pg/mL (3.0-53.7)
[2020-12-18 12:24] VITALS: PULSE 61; RESP 14; O2SAT 100
== END 2020-12-18 12:25 | disposition home or self-care (01) ==
PROVIDERS: Emergency Provider Emergency Medicine; PCP Family Medicine
DX: Z04.3 Encounter for examination and observation following other accident (principal); I25.10 Atherosclerotic heart disease of native coronary artery without angina pectoris; I10 Essential (primary) hypertension; E11.9 Type 2 diabetes mellitus without complications; E78.5 Hyperlipidemia, unspecified; F17.200 Nicotine dependence, unspecified, uncomplicated; Z79.4 Long term (current) use of insulin; Z79.82 Long term (current) use of aspirin; Z79.899 Other long term (current) drug therapy; Z86.73 Personal history of transient ischemic attack (TIA), and cerebral infarction without residual deficits
CPT/HCPCS: 70450; 80053; 84484; 85025; 93005; 99283; J7030; A4216

== ENCOUNTER → 2021-01-07 10:31 | Outpatient (CLI) | payer MEDICARE, MEDICAID, SELFPAY ==
[2020-12-18 08:51] VITALS: BMI 32.3
--- NOTE | 2021-01-07 10:36 | ADUL_ITS ---
Reason For Study: Claudication Left Velocities Ext Iliac Artery, dist = 224.2 cm./sec. Common Femoral Artery, mid = 218.9 cm./sec. Supf. Femoral Artery, prox = 80.9 cm./sec. Supf. Femoral Artery, mid = 113.9 cm./sec. Supf. Femoral Artery, dist = 113.9 cm./sec. Profunda Femoral Artery = 91.6 cm./sec. Popliteal Artery, mid = 67.4 cm./sec. Post. Tibial Artery, prox = 114.9 cm./sec. Post Tibial Artery, mid = 89.3 cm./sec. Post Tibial Artery, dist. = 102 cm./sec. Peroneal Artery, prox = 51.6 cm./sec. Peroneal Artery, mid = 43.9 cm./sec. Peroneal Artery,dist. = 48.3 cm./sec. Ant.Tibial Artery, prox = 50.5 cm./sec. Ant Tibial Artery, mid = 63.6 cm./sec. Ant. Tibial Artery, distal = 65.8 cm./sec. Procedure Exam performed in department. VL/US Art Duplex Unilat Lower Ext Interpretation Summary Normal, pulsatile arterial flow with normal waveform morphology is noted at all levels in the left lower extremity arterial system. The peak systolic velocity in the left externa l iliac artery and common femoral artery are elevated, though without any evidence of stenosis in the visualized field. Peak systolic velocities are normal elsewhere. No significant arterial occlusiv e process is identified. Ordering Physician: LARRY ECHEVERRIA Referring Physician: Keyona Lopes Performed By: Sarah De La Cruz RVT and Student
== END ==
PROVIDERS: PCP Family Medicine
DX: M79.605 Pain in left leg (principal); I73.9 Peripheral vascular disease, unspecified; R20.0 Anesthesia of skin
CPT/HCPCS: 93926

== ENCOUNTER 2021-08-24 15:38 | Emergency (ER) | payer MEDICARE, MEDICAID, SELFPAY ==
[2021-08-24 15:39] VITALS: BP 180/88; PULSE 84; RESP 16; TEMP 36.6; O2SAT 98; BMI 32.3
--- NOTE | 2021-08-24 16:02 | CT_ITS ---
STUDY: CT CERVICAL SPINE WITHOUT CONTRAST REASON FOR EXAM: Female, 56 years old. cervical radiculopathy RADIATION DOSAGE (If Supplied By Facility): CTDIvol = ( 20.29 ) mGy, DLP = ( 416.71 ) mGycm TECHNIQUE: High resolution transaxial imaging was performed without contrast material. Sagittal and coronal images were reconstructed. Individualized dose optimization techniques were used for this CT. COMPARISON: None FINDINGS: Normal craniovertebral junction. Normal anterior atlantoaxial articulation. Normal odontoid process. Normal cervical lordosis. Normal vertebral bodies and posterior osseous elements. C2-3: Normal endplates. Normal disc height and morphology. Normal central canal and intervertebral neuroforamina. C3-4: Normal endplates. Normal disc height and morphology. Normal central canal and intervertebral neuroforamina. C4-5: Normal endplates. Normal disc height and morphology. Normal central canal and intervertebral neuroforamina. C5-6: Normal endplates. Normal disc height and morphology. Normal central canal and intervertebral neuroforamina. C6-7: Normal endplates. Normal disc height and morphology. Normal central canal and intervertebral neuroforamina. C7-T1: Normal endplates. Normal disc height and morphology. Normal central canal and intervertebral neuroforamina. Normal visualized soft tissue structures. CT/Spine Cervical without Contras IMPRESSION: Normal unenhanced CT examination of the cervical spine. Electronically Signed: Denis White DO at 16:40 EDT ,
--- NOTE | 2021-08-24 16:03 | EX.ED.DYSGE1 ---
HPI History of Present Illness Chief Complaint: Numb/Ting Informant: patient Onset/Context/Timing Onset: - (Acute on chronic) Narrative Narrative: Patient presents with worsening paresthesias in her left arm. She states has had these problems since a prior stroke in 2013. She is noticed it is becoming more frequent and severe. She describes a tingling sensation that starts in her fingertips and comes up to the elbow. When she repositions her arm symptoms will go away within an hour or two. She denies any weakness in her arm. She states she tried gabapentin in the past but cannot take it because it made her sick. She is been using Tylenol and ibuprofen at home without improvement. She does report having an EMG test a year or 2 ago that was normal. [facility] Medical History (Updated 08/24/21 @ 16:[address] Nirmala Hamilton MD) Abnormal stress test Anxiety Carotid artery disease Carotid artery stenosis Chronic bronchitis Chronic headaches Depression Diabetes mellitus type II, controlled Essential hypertension Fatigue Heavy tobacco smoker History of CVA (cerebrovascular accident) Hyperlipidemia Hypersomnia PTSD (post-traumatic stress disorder) Shortness of breath Home Medications atorvastatin 80 mg tablet 80 mg PO QHS 08/20/19 [History Last Taken 12/17/20] hydroxyzine HCl 10 mg tablet 10 - 20 mg PO QHS PRN tab 08/20/19 [History Last Taken Unknown] metformin 500 mg tablet 1,000 mg PO DAILY tab 08/20/19 [History Last Taken 12/18/20] losartan 50 mg tablet 50 mg PO DAILY #30 tab 10/12/19 [Rx Last Taken 12/18/20] aspirin 81 mg tablet,delayed release 81 mg PO DAILY #90 tab 01/07/20 [Rx Last Taken 12/18/20] clonidine HCl 0.1 mg PO BID 12/18/20 [History Last Taken Unknown] insulin glargine [Lantus Solostar U-100 Insulin] 40 unit SUBCUT QHS 12/18/20 [History Last Taken Unknown] loratadine 10 mg PO DAILY 12/18/20 [History Last Taken Unknown] hydrocodone-acetaminophen 1 tab PO Q6H PRN 3 Days #10 tab 08/24/21 [Rx Last Taken Unknown] Allergy/AdvReac Type Severity Reaction Status Date / Time No Known Allergies Allergy Verified 08/24/21 15:42 Family History Mother Diabetes Leukemia Surgical History History of left heart catheterization (10/12/19) History of right-sided carotid endarterectomy (04/01/14) Social History Smoking Status: Heavy Smoker (>10/day) ROS ROS ED Constitutional Constitutional ED: Denies chills or fever(s) Eyes Eyes: Denies change in vision ENT ENT ED: Denies sore throat Cardiovascular Cardiovascular: Denies chest pain Respiratory/Chest Respiratory/Chest: Denies cough or dyspnea Gastrointestinal Gastrointestinal: Denies abdominal pain, nausea or vomiting Musculoskeletal Musculoskeletal: Reports neck pain; Denies back pain Integumentary Denies rash Neurologic Neurologic: Reports paresthesias; Denies headache(s) or weakness Allergic/Immunologic Allergic/Immunologic ED: Denies urticaria EXAM Physical Exam Const Vital Signs: 08/24/21 15:39 Temperature 97.8 F Temperature Source Temporal Pulse Rate 84 Respiratory Rate 16 Blood Pressure 180/88 H Blood Pressure Mean 118 Pulse Ox 98 Oxygen Delivery Method Room Air Positive well nourished and well developed General Appearance ED: well developed HEENT Reports moist mucous membranes Eyes PERRL and EOMs intact bilaterally Neck supple Chest Wall inspection of chest normal and palpation of chest normal Resp normal respiratory effort and clear to auscultation bilaterally Cardio regular rate and regular rhythm Back/Spine Back/Spine Narrative: Mild muscular tenderness throughout the cervical paraspinals. Extremity normal to inspection Extremity Narrative: Strong distal pulses of all extremities. No significant edema or skin changes. Strong hand grasp. Neuro oriented x3 Sensorium / Orientation: alert Psych mental status grossly normal Skin no rashes or lesions noted MDM MDM MDM Narrative Medical decision making narrative: Patient given [place] for pain. CT scan of the C-spine obtained. Radiography Diagnostic Testing: Clinical Impression(s) from Imaging Studies Cervical Spine CT 08/24/21 16:02 IMPRESSION: Normal unenhanced CT examination of the cervical spine. Electronically Signed: Denis White DO at 16:40 EDT Reading Location ID and State: [facility] / [place] Tel , Service support , Treatment and Re-Evaluation Narrative: CT C-spine unremarkable with no significant arthritic changes noted. I did do an OAR[facility] report. Patient has not had any narcotic prescriptions in the last year. She will be given a short course of [place] but advised she is to help with her primary care physician for further testing and treatment. Discharge Plan Triage Chief Complaint: Numb/Ting ED Provider: Nirmala Hamilton Dx/Rx/DC Orders Clinical Impression: Cervical radiculopathy Instructions: Radiculopathy Cervical Prescriptions: New hydrocodone-acetaminophen 5-325 mg tablet 1 tab PO Q6H PRN (Reason: pain) 3 Days Qty: 10 RF: 0 No Action atorvastatin 80 mg tablet 80 mg PO QHS RF: 0 metformin 500 mg tablet 1,000 mg PO DAILY RF: 0 hydroxyzine HCl 10 mg tablet 10 - 20 mg PO QHS PRN (Reason: Anxiety) RF: 0 clonidine HCl 0.1 mg Tablet 0.1 mg PO BID RF: 0 loratadine 10 mg Capsule 10 mg PO DAILY RF: 0 Lantus Solostar U-100 Insulin 100 unit/mL (3 mL) insulin pen 40 unit SUBCUT QHS RF: 0 losartan 50 mg tablet 50 mg PO DAILY Qty: 30 RF: 11 aspirin [Adult Aspirin Regimen] 81 mg tablet,delayed release (DR/EC) 81 mg PO DAILY Qty: 90 RF: 3 Primary Care Provider: Keyona Lopes Referrals: Keyona Lopes [Primary Care Provider] - 1 Week Disposition Disposition: Home, Self Care
[2021-08-24] MEDS: HYDROcodone Bitartrate/Apap 5/325 Tablet PO (16:13)
== END 2021-08-24 18:09 | disposition home or self-care (01) ==
PROVIDERS: Emergency Provider Emergency Medicine; PCP Family Medicine; Visit Provider Emergency Medicine
DX: M54.12 Radiculopathy, cervical region (principal); E11.9 Type 2 diabetes mellitus without complications; Z79.4 Long term (current) use of insulin; I10 Essential (primary) hypertension; E78.5 Hyperlipidemia, unspecified; F17.200 Nicotine dependence, unspecified, uncomplicated; Z79.82 Long term (current) use of aspirin; Z79.84 Long term (current) use of oral hypoglycemic drugs; Z79.899 Other long term (current) drug therapy; Z86.73 Personal history of transient ischemic attack (TIA), and cerebral infarction without residual deficits
CPT/HCPCS: 72125; 99283

== ENCOUNTER → 2023-08-29 | Outpatient (CLI) | payer MEDICARE, MEDICAID, SELFPAY ==
--- NOTE | 2023-08-29 11:43 | NM_ITS ---
CLINICAL: 58-year-old female with history of hydronephrosis. 99m Tc MAG3 DIURETIC RENAL SCINTIGRAPHY COMPARISON: Previous diuretic renal scintigraphy study report dated 01/23/2020 FINDINGS: Following the intravenous administration of 12.0 mCi of 99m Tc MAG3, renal images reveal: 1. The flow study demonstrates continued relatively normal arterial phase distribution of the radiotracer to the bilateral renal units. 2. Immediate static delayed nephrogram images depict homogeneous and prompt radiopharmaceutical concentration by the renal parenchyma of both kidneys. Collecting structure visualization is noted at 4 minutes post tracer injection bilaterally. Washout of the radiopharmaceutical by the renal parenchyma appears relatively normal. Persistent collecting system activity is defined in the bilateral kidneys during 20 minutes of pre-Lasix sequential image acquisition. 3. The [id number] ratio of total renal parenchymal function was calculated to be 50/50 compared to 54/46 defined on the prior examination dated 01/23/2020. Furosemide 10 mg was administered intravenously. The post Lasix T ? washout of the right and left kidney collecting system activity was calculated to be > 20 minutes bilaterally, (normal < 10 minutes). Analysis of the post Lasix collecting system time/activity curves demonstrate decreasing count statistics in the left kidney collecting system and increased count statistics in the right kidney collecting system. NM/Renal Scan w/ Pharm Intervent IMPRESSION: 1. There is preservation of bilateral renal parenchymal-cortical function. 2. The bilateral kidney collecting systems demonstrate an abnormal response to diuretic administration consistent with the presence of mechanical and/or functional obstruction. 3. Overall compared to the previous diuretic renal scintigraphy study dated 01/23/2020, there is currently identified an abnormal response to diuretic provision in the left kidney collecting system and an unchanged abnormal response to furosemide administration in the right kidney collecting system. Electronically Signed: Bret Lion DO at 10:20 EDT ,
== END | disposition home or self-care (01) ==
PROVIDERS: PCP Nurse Practitioner Adult Health; Referring Provider Urology; Visit Provider Urology
DX: N13.30 Unspecified hydronephrosis (principal)
CPT/HCPCS: 78708; A9562; J1940

== ENCOUNTER → 2023-09-12 | Outpatient (CLI) | payer MEDICARE, MEDICAID, SELFPAY ==
[2023-09-12 10:45] LABS: Hematocrit 37.4 % (37-47); Hemoglobin 12.3 g/dL (12.0-15.0); Mean Corp Hgb Conc 32.9 g/dL (32-36); Mean Corpuscular Hgb 28.9 pg (27.0-32.0); Mean Platelet Vol. 11.5 fl (6.2-12.0); Platelet Count 217 K/mm3 (150-450); RBC Distribution Width CV 12.7 % (11.6-14.6); RBC Distribution Width SD 40.8 fl (35.1-43.9); Red Blood Count 4.25 M/mm3 (4.2-5.4)
[2023-09-12 11:05] LABS: Anion Gap 10 (5-15); BUN 66 mg/dL (7-18); BUN/Creat Ratio 31.6 RATIO (10-20); Chloride 104 mmol/L (98-107); Creatinine, Serum 2.09 mg/dL (0.55-1.02); EST Glomerular Filtration Rate 26 mL/min (>60); Est Glom Filt Rate - Afr Amer 31 mL/min (>60); Glucose 133 mg/dL (74-106); Potassium 3.8 mmol/L (3.5-5.1); Sodium Level 136 mmol/L (136-145)
== END | disposition home or self-care (01) ==
PROVIDERS: PCP Nurse Practitioner Adult Health; Referring Provider Urology; Visit Provider Urology
DX: N13.30 Unspecified hydronephrosis (principal)
CPT/HCPCS: 36415; 80048; 85027

== ENCOUNTER 2023-09-22 07:56 | Day surgery (SDC) | payer MEDICARE, MEDICAID, SELFPAY ==
[2023-09-22] VITALS (7 sets, daily range): BP systolic 111–143; BP diastolic 50–96; PULSE 59–77; RESP 18; TEMP 36.8–37; O2SAT 94–97; BMI 23.8
[2023-09-22] MEDS: Lactated Ringers 1,000 ML 15 ML IV (08:45)
[2023-09-22] MEDS: Ipratropium/Albuterol Sulfate 3 ML AMPUL.NEB INHALATION (09:00)
[2023-09-22] MEDS: Cefazolin 2 GM in 0.9% Normal Saline (100mL Bag) 100 ML IV (09:05)
--- NOTE | 2023-09-22 10:19 | DCINST_ITS ---
Discharge Instructions Diet Discharge Diet: No restrictions Activity Discharge Activity: Return to Normal Activity Dressing / Incision Call your doctor if you observe: Fever of 101 or Higher, Inability to urinate and Inability to have a bowel movement Follow Up Care Please Follow Up With: Helga Marks MD When: The office will call her to schedule follow-up in 1 to 2 weeks. Test Results: Test results from this visit will be discussed in further detail at your follow- up appointment, if applicable. Discharge Plan Admission Attending Provider: Helga Marks Primary Care Provider: Elizabeth Martinez NP Discharge Orders/Prescriptions Prescriptions: New phenazopyridine [phenazopyridine] 100 mg tablet 100 mg PO TID PRN (Reason: pain) Qty: 30 0RF oxycodone-acetaminophen [Percocet] 5-325 mg tablet 1 tab PO Q8H PRN (Reason: pain) 3 Days Qty: 10 0RF Continued cephalexin 250 mg capsule 250 mg PO TID trazodone 50 mg tablet 50 mg PO QHS trazodone 150 mg tablet 150 mg PO QHS losartan 50 mg tablet 100 mg PO QHS Referrals / Follow Up: Elizabeth Martinez NP, [employer] [Primary Care Provider] - Disposition Disposition (needs filled in before D/C Order can be placed): Home, Self Care
--- NOTE | 2023-09-22 10:22 | OP.PCM_ITS ---
Report of Operation Date of Procedure: 09/22/23 Pre-Operative Diagnosis: bilateral renal obstruction with hydronephrosis Post-Operative Diagnosis: same Surgery/Procedure Performed:: Cystoscopy, bilateral retrograde pyelogram, bilateral ureteroscopy, bilateral ureteral stent insertion Type of Anesthesia: General Specimen's removed: None Description of Procedure: The patient is a 58-year-old female who presented to the office with some complaints of lower abdominal pain consistent with bladder spasms. She had been evaluated with a CT scan revealing increasing right-sided hydronephrosis. On renal Lasix scan evaluation, both the right and left renal units drained and greater than 20 minutes following the administration of Lasix. She now presents for cystoscopy, ureteroscopy for further evaluation of her obstruction. Informed consent was obtained. She was taken to the operating room and placed on the operating room table. Anesthesia monitored the head, neck, airway, IV access and vital signs throughout the case. Once anesthesia was appropriately administered, she was placed into dorsolithotomy position and was prepped and draped in usual sterile fashion. The cystoscope was inserted through the urethra under direct visualization into the urinary bladder. The bladder mucosa was visualized revealing no evidence of mass the patient's left ureteral orifice was cannulated with an 8 [place] cone-tip catheter and contrast was injected in retrograde fashion under fluoroscopic visualization. This revealed a mildly dilated left ureter with hydronephrosis and no obvious etiology aside from narrowing at the UPJ. The process was repeated on the patient's right side revealing significant hydronephrosis, more than her previous CT. The retrograde pyelogram was consistent with narrowing at the UPJ. A 0.035 Glidewire was advanced through the right ureteral orifice into the renal pelvis. A flexible ureteroscope was passed gently over the wire all the way up into the renal pelvis. There is no difficulty with passing of the scope. The entire pelvis was visualized and the entire length of the ureter was directly visualized. There was no evidence of mass, stone or other etiology for obstruction. Ureteroscope was also performed on the patient's left side all the way into the renal pelvis with no findings other than minimal narrowing but no obstruction at the UPJ. The decision was made to place stents bilaterally. The 0.035 Glidewire was utilized for placement of a 6 Green[place]ic 26 cm JJ stent on each side with good positioning in the renal pelvis as well as the urinary bladder. The patient's bladder was then emptied and the case was terminated. She was awakened and taken to the recovery room in good condition. There were no complications during the procedure. Grafts/Implants Used: 6 Greenlandic x 26 cm JJ stent x 2 Complications None Admit VTE Documentation VTE Present on Admission: Yes VTE Mechan Device Prophylaxis: SCD's VTE Pharm Prophylaxis ordered?: No Reason prophylaxis not ordered:: Treatment Not Indicated
[2023-09-22] MEDS: Ketorolac 30 MG/ML Syringe IV (10:30)
[2023-09-22 13:51] LABS: Bedside Glucose 127 mg/dL (74-106)
== END 2023-09-22 11:03 | disposition home or self-care (01) ==
LOC: SDC 07:58 → AC 07:59
PROVIDERS: PCP Nurse Practitioner Adult Health; Referring Provider Urology; Visit Provider Urology
PROC: 0TJ98ZZ Inspection of Ureter, Via Natural or Artificial Opening Endoscopic (ICD-10-PCS; CPT 52352; principal; 2023-09-22 09:30)
DX: N13.2 Hydronephrosis with renal and ureteral calculous obstruction (principal); E11.9 Type 2 diabetes mellitus without complications; I10 Essential (primary) hypertension; F17.200 Nicotine dependence, unspecified, uncomplicated; N39.41 Urge incontinence; N39.0 Urinary tract infection, site not specified; Z79.899 Other long term (current) drug therapy; Z86.73 Personal history of transient ischemic attack (TIA), and cerebral infarction without residual deficits
CPT/HCPCS: 52332; 00910; 76000; 82962; J7120; J2405

== ENCOUNTER → 2023-10-19 | Outpatient (CLI) | payer MEDICARE, MEDICAID, SELFPAY ==
--- NOTE | 2023-10-19 09:00 | RAD_ITS ---
INDICATION: KIDNEY STONES EXAMINATION/TECHNIQUE: X-RAY - XR Abdomen 1 View: 2 image AP abdomen COMPARISON: None FINDINGS: BOWEL GAS PATTERN: Nonspecific non-obstructive bowel gas pattern. No focal stomach or bowel distention. Moderate colonic stool. FREE AIR: Not well assessed on a supine view. ORGANOMEGALY: Mild hepatomegaly. CALCIFICATIONS: Bilateral double-J ureteral stents with ends coiled in the expected location of the renal pelvises and bladder. 2.7 mm calcification projects along the distal left stent. Other scattered pelvic calcifications are present, more suggestive of phleboliths. BONES AND SOFT TISSUES: No acute pathology. LOWER CHEST: Lung bases are clear. RAD/Abdomen Single View IMPRESSION: Non-obstructive bowel gas pattern. Moderate colonic stool. Multiple pelvic phleboliths with questionable 2.7 mm ureteral stone along the distal left ureter Electronically Signed: Rodney Soliz MD at 22:45 EDT ,
== END | disposition home or self-care (01) ==
LOC: MTRAD 08:42
PROVIDERS: PCP Nurse Practitioner Adult Health; Referring Provider Urology; Visit Provider Urology
DX: N20.0 Calculus of kidney (principal)
CPT/HCPCS: 74018

== ENCOUNTER 2024-01-18 12:22 | Emergency (ER) | payer MEDICARE, MEDICAID, SELFPAY ==
[2024-01-18 12:23] VITALS: BP 117/56; PULSE 60; RESP 16; TEMP 36.2; O2SAT 99; BMI 23.9
--- NOTE | 2024-01-18 12:42 | EX.ED.DYSGE1 ---
HPI History of Present Illness Chief Complaint: Ear Problem [facility] Medical History (Updated 01/18/24 @ 14:[address] Gus Sanderson, DO) Hydronephrosis Post-menopausal Wears glasses Hypertension Diabetes High cholesterol Wears dentures Smoker History of stress test History of echocardiogram Cardiology follow-up encounter Chronic headaches Anxiety Depression PTSD (post-traumatic stress disorder) Hypersomnia Hyperlipidemia Heavy tobacco smoker Fatigue Shortness of breath Diabetes mellitus type II, controlled Chronic bronchitis Essential hypertension Abnormal stress test History of CVA (cerebrovascular accident) Carotid artery stenosis Carotid artery disease Home Medications ?Medication ?Instructions ?Recorded ?Last Taken ?Type cephalexin 250 mg capsule 250 mg PO TID 09/15/23 09/22/23 05:00 History losartan 50 mg tablet 100 mg PO QHS 09/15/23 09/21/23 History trazodone 150 mg tablet 150 mg PO QHS 09/15/23 09/21/23 History trazodone 50 mg tablet 50 mg PO QHS 09/15/23 09/21/23 History oxycodone-acetaminophen 5 mg-325 1 tab PO Q8H PRN pain 3 days #10 09/22/23 Unknown Rx mg tablet (Percocet) tabs phenazopyridine 100 mg tablet 100 mg PO TID PRN pain #30 TABLETS 09/22/23 Unknown Rx Allergy/AdvReac Type Severity Reaction Status Date / Time No Known Allergies Allergy Verified 01/18/24 12:23 Family History Mother Diabetes Leukemia Surgical History History of left heart catheterization (10/12/19) History of right-sided carotid endarterectomy (04/01/14) Social History Smoking Status: Light Smoker (<10/day) EXAM Physical Exam Const Vital Signs: 01/18/24 12:23 Temperature 97.2 F L Temperature Source Temporal Pulse Rate 60 Respiratory Rate 16 Blood Pressure 117/56 L Blood Pressure Mean 76 Pulse Ox 99 Oxygen Delivery Method Room Air MDM MDM MDM Narrative Medical decision making narrative: HISTORY OF PRESENT ILLNESS: 58-year-old female presents with ears being plugged up. Patient further states she woke up this morning with pain in her left ear and decreased hearing. Thinks her ears are plugged up. REVIEW OF SYSTEMS: Pertinent positives: Ears plugged up Pertinent negatives: Fever, mastoid tenderness PHYSICAL EXAM: Nursing triage notes reviewed, Vital signs reviewed Constitutional: please see mdm HENT: MMM, no mastoid tenderness bilaterally, left TM with obvious cerumen impaction. R TM pearly edwards without hyperemia, bulging or middle ear effusion. Eyes: Pupils equal round and reactive to light, Extraocular muscles intact Neck: No stridor, no JVD, full neck ROM Skin: No rash or lesions noted MEDICAL DECISION MAKING: Chief Complaint: Ears plugged up External records reviewed: Recent evaluations for cerumen impaction or other ear abnormalities [facility] Narrative: The patient was hemodynamically stable, afebrile, nontoxic-appearing. Exam consistent with cerumen impaction. No sign of otitis media or externa initially. I considered the following differential diagnosis: Cerumen impaction, otitis media, otitis externa Exam with cerumen impaction on the left Order Debrox and irrigation. Ear was reassessed after irrigation and left TM showed no obvious signs of otitis. The patient and/or family, caregivers express understanding. The patient and/or family, caregivers agrees with the plan. Shared decision making: I will have a discussion with the patient and or visitors regarding risk/benefits of further testing or admission. They will be made aware of of the risk/benefits inherent in this decision they will be given the opportunity to voice understanding. Total critical care time today provided was at least 0 minutes. This excludes separately billable procedures. Critical care time (if documented) is secondary to the patient having high probability of clinically significant/life threatening deterioration in the patient's condition which required my urgent intervention. Impression: 1. Cerumen impaction 2. Ear pain Dispo: dc This note was generated with [employer] ([place]) dictation software. It may contain incorrect words, spelling, and punctuation that were not noted in review of the chart prior to signing. Discharge Plan Triage Chief Complaint: Ear Problem ED Provider: Gus Sanderson Dx/Rx/DC Orders Clinical Impression: Cerumen impaction Instructions: ED Cerumen Impaction Treated Prescriptions: No Action cephalexin 250 mg capsule 250 mg PO TID trazodone 50 mg tablet 50 mg PO QHS trazodone 150 mg tablet 150 mg PO QHS losartan 50 mg tablet 100 mg PO QHS phenazopyridine [phenazopyridine] 100 mg tablet 100 mg PO TID PRN (Reason: pain) Qty: 30 0RF oxycodone-acetaminophen [Percocet] 5-325 mg tablet 1 tab PO Q8H PRN (Reason: pain) 3 Days Qty: 10 0RF Primary Care Provider: Elizabeth Martinez NP Referrals: Elizabeth Martinez NP, [facility] [Primary Care Provider] - Activity Restrictions/Additional Instructions: Thank you for trusting us with your care today! Please take Tylenol (2 pills, 650 mg), ibuprofen (2 pills, 400 mg) every 6 hours as needed for pain and fever control. Please return to the emergency department if your symptoms change or worsen. Please follow with your primary care physician for further outpatient evaluation and management. Print Language: Arabic Disposition Disposition: Home, Self Care Discharge Date/Time: 01/18/24 14:55
[2024-01-18] MEDS: Carbamide Peroxide 15 ML Bottle 5 DRP OTIC (13:17)
== END 2024-01-18 14:55 | disposition home or self-care (01) ==
PROVIDERS: Emergency Provider Emergency Medicine; PCP Nurse Practitioner Adult Health; Visit Provider Emergency Medicine
DX: H61.20 Impacted cerumen, unspecified ear (principal); E11.9 Type 2 diabetes mellitus without complications; F17.200 Nicotine dependence, unspecified, uncomplicated; Z86.73 Personal history of transient ischemic attack (TIA), and cerebral infarction without residual deficits
CPT/HCPCS: 99283